=== PATIENT | female | born 1965 | race Caucasian/White ===

== ENCOUNTER 2019-02-24 13:48 | Observation (INO) | payer OTHER ==
--- NOTE | 2019-02-24 14:14 | PDOC ---
Rapid Medical Evaluation Chief Complaint: Chest Pain Time Seen by Provider: 02/24/19 14:04 Medical Evaluation: Allergies Allergy/AdvReac Type Severity Reaction Status Date / Time peanut Allergy Severe ANAPHYLACTI Verified 02/24/19 14:06 C strawberry [[place]] Allergy Severe Hives Verified 02/24/19 14:06 sulfite Allergy Severe HIVES,SWOLLEN Verified 02/24/19 14:06 GLANDS APPLES Allergy Severe Hives Uncoded 02/24/19 14:06 SHRIMP Allergy Severe HIVES Uncoded 02/24/19 14:06 SWOLLEN GLANDS Vital Signs Temp Pulse Resp BP Pulse Ox 82 17 125/7 L 99 02/24/19 14:06 02/24/19 14:06 02/24/19 14:06 02/24/19 14:06 02/24/19 14:13 Patient complaints of: recent travel now with sob and rt sided cp, no calf tenderness Patient on brief exam: vss, lcta, ekg nsr Patient ordered for: labs, ekg Patient to proceed to the ED Discharge Disposition - Diagnosis Chest pain - Referrals - Patient Instructions - Post Discharge Activity
--- NOTE | 2019-02-24 14:53 | PDOC ---
History of Present Illness - History of Present Illness Initial Comments: Dalila Arnett is a 54yo woman with a PMH of HTN, NIDDM, breast CA s/p resection and kidney CA s/p left nephrectomy who presents with mid sternal chest pain that radiated to the left shoulder and neck yesterday. She states that she was standing and cooking dinner when the pain started. The pain initially started as a mid-sternal discomfort, which she did not think anything of at first, but acutely became severe. The pain was sharp, as though she was "shot by an arrow" and intense. It radiated to the left shoulder, where she felt throbbing over the shoulder, as well as the bilateral neck. Ms Arnett reports associated nausea, diaphoresis, and lightheadedness. She was hoping the symptoms would improve without intervention, so she took her regular medications and went to bed yesterday. This morning, her blood pressure was around 150/100, which she says is much higher than normal, and she continued to have chest discomfort. She describes it as tightness and shortness of breath today. She additionally also has jaw discomfort, though this has decreased since yesterday. Ms Arnett additionally endorses bilateral leg pain. She recently returned from a trip to [place] 2 days ago and attributed the pain to walking more than normal. However, she has continued pain, particularly in the left calf. She says that she started feeling somewhat short of breath during the last 1-2 days of her vacation. <Sahara Matthews - Last Filed: 02/24/19 19:15> <Tee Stauffer - Last Filed: 02/24/19 19:36> - General Chief Complaint: Chest Pain Stated Complaint: CHEST PAIN Time Seen by Provider: 02/24/19 14:04 Past History - Past Medical History Anemia: Yes (DUE TO CHEMO) Asthma: Yes (LAST USED ALBUTEROL 2 WEEKS AGO) Cancer: Yes (LT KIDNEY,REMOVED.... LEFT BREAST CA) Cardiac Disorders: Yes (CAD,PT HAS 2 STENTS 2006) CVA: No COPD: No CHF: No Dementia: No Diabetes: Yes (NIDDM) GI Disorders: Yes (GERD) Disorders: No HTN: Yes Hypercholesterolemia: Yes Liver Disease: No Seizures: No Thyroid Disease: No - Surgical History Abdominal Surgery: No Appendectomy: No Cardiac Surgery: Yes (STENT X 2,ONE IN 2004,ANOTHER 2006,REPEAT CATH JUL 2013 NORMAL) Cholecystectomy: No Lung Surgery: No Neurologic Surgery: No Orthopedic Surgery: No - Immunization History Immunization Up to Date: Yes - Suicide/Smoking/Psychosocial Hx Smoking Status: No Smoking History: Never smoked Have you smoked in the past 12 months: No Number of Cigarettes Smoked Daily: 0 Information on smoking cessation initiated: No Hx Alcohol Use: No Drug/Substance Use Hx: No Substance Use Type: None Hx Substance Use Treatment: No <Sahara Matthews - Last Filed: 02/24/19 19:15> <Tee Stauffer - Last Filed: 02/24/19 19:36> - Past Medical History Allergies/Adverse Reactions: Allergies Allergy/AdvReac Type Severity Reaction Status Date / Time peanut Allergy Severe ANAPHYLACTI Verified 02/24/19 14:06 C strawberry [[place]] Allergy Severe Hives Verified 02/24/19 14:06 sulfite Allergy Severe HIVES,SWOLLEN Verified 02/24/19 14:06 GLANDS APPLES Allergy Severe Hives Uncoded 02/24/19 14:06 SHRIMP Allergy Severe HIVES Uncoded 02/24/19 14:06 SWOLLEN GLANDS Home Medications: Ambulatory Orders Amlodipine Besylate [Norvasc -] 5 mg PO HS 10/11/15 Aspirin [ASA -] 81 mg PO DAILY 10/11/15 Atorvastatin Ca [Lipitor -] 10 mg PO HS 10/11/15 Carvedilol [Coreg] 25 mg PO BID 10/11/15 Exemestane [Aromasin] 25 mg PO DAILY 10/11/15 Glipizide Xl [Glucotrol Xl -] 5 mg PO DAILY 10/11/15 Losartan Potassium 100 mg PO DAILY 10/11/15 Review of Systems - Review of Systems Comments:: General: No fevers, no chills, no weight or appetite change, no malaise HEENT: No changes in vision, no changes in hearing, no congestion, no sore throat CV: + chest pain, no palpitations, + LE edema (new recently) Pulm: + SOB, no cough, no wheezing GI: + nausea, no vomiting, no change in bowel habits, no melena : No frequency, no urgency, no dysuria Musc: No back pain, no joint swelling, no recent injury Skin: No rash, no lesions, no erythema Endo: No excessive thirst, no heat/cold intolerance Heme: No unusual bruising or bleeding, no swollen glands Neuro: No syncope, no numbness/tingling, no focal weakness Vasc: No claudication Psych: No recent change in mood, no SI or HI <Sahara Matthews - Last Filed: 02/24/19 19:15> *Physical Exam - Vital Signs Last Vital Signs Temp Pulse Resp BP Pulse Ox 97.4 F L 82 17 125/72 99 02/24/19 14:06 02/24/19 14:06 02/24/19 14:06 02/24/19 14:06 02/24/19 14:06 - Physical Exam Comments: General: Comfortable, no acute distress HEENT: PERRL, EOMI, MMM, voice normal, normal neck ROM, no LAD Cards: RRR, no murmur appreciated Pulm: Comfortable on room air, clear to auscultation bilaterally Abd: Soft, nontender, nondistended : No CVA tenderness Ext: Atraumatic. Left arm edema (2/2 lymph node removal). Mild non-pitting LE edema. Calf tenderness, L>R. Slight pain w/ passive foot flexion. ROM intact. Strength 5/5 and equal bilaterally Vasc: Extremities WWP Skin: Normal color, no rashes or lesions Neuro: A&Ox3, CN grossly intact, normal speech, motor/sensory grossly intact and symmetric Psych: Mood appropriate to situation <Sahara Matthews - Last Filed: 02/24/19 19:15> - Vital Signs Last Vital Signs Temp Pulse Resp BP Pulse Ox 98.0 F 75 17 136/75 97 02/24/19 14:06 02/24/19 14:06 02/24/19 14:06 02/24/19 14:06 02/24/19 14:06 <Tee Stauffer - Last Filed: 02/24/19 19:36> Heart Score/ECG Review - History History: Highly suspicious - Electrocardiogram EKG: Normal - Age Age: 45-65 - Risk Factors Risk Factors Heart Score: Yes Hx Hypercholesterolemia, Yes Hx Hypertension, Yes Hx Diabetes Based on the list above the patient has:: >/=3 risk factors or Hx atherosclerotic disease - Troponin Troponin: </= normal limit - Score Heart Score - Total: 5 <ByronSahara - Last Filed: 02/24/19 19:15> ED Treatment Course - LABORATORY CBC & Chemistry Diagram: 02/24/19 14:28 02/24/19 14:28 <ByronSahara - Last Filed: 02/24/19 19:15> - LABORATORY CBC & Chemistry Diagram: 02/24/19 14:28 02/24/19 14:28 - ADDITIONAL ORDERS Additional order review: Laboratory Results 02/24/19 02/24/19 14:28 14:28 D-Dimer 559 H Sodium 141 Potassium 4.3 Chloride 106 Carbon Dioxide 30 Anion Gap 5 L BUN 15.6 Creatinine 1.4 H Est GFR (CKD-EPI)AfAm 48.90 Est GFR (CKD-EPI)NonAf 42.19 Random Glucose 163 H Calcium 8.7 Total Bilirubin 0.2 AST 19 ALT 36 Alkaline Phosphatase 88 Creatine Kinase 117 Troponin I < 0.02 Total Protein 7.8 Albumin 3.6 02/24/19 14:28 RBC 4.07 MCV 84.6 MCHC 35.0 RDW 13.7 MPV 9.1 D Neutrophils % 59.0 Lymphocytes % 30.6 Monocytes % 6.0 Eosinophils % 3.2 Basophils % 1.2 - Medications Given in the ED: ED Medications Discontinued Medications Generic Name Dose Route Start Last Admin Trade Name Freq PRN Reason Stop Dose Admin Sodium Chloride 2,000 ml 02/24/19 16:34 02/24/19 16:43 Normal Saline - IV 02/24/19 16:35 2,000 ml ONCE ONE Administration <Tee Stauffer - Last Filed: 02/24/19 19:36> Medical Decision Making - Medical Decision Making 02/24/19 14:51 Dalila Arnett is a 54yo woman with a PMH of HTN, NIDDM, breast CA s/p resection and kidney CA s/p left nephrectomy, asthma who presents with mid sternal chest pain that radiated to the left shoulder and neck yesterday with associated diaphoresis, nausea, and lightheadedness. She endorses continued chest tightness, SOB, and jaw discomfort and also notes L>R calf swelling and tenderness following a recent trip to [place]. - Symptoms concerning for ACS or PE. HEART score 5 - CBC, CMP, trop, d-dimer, EKG ordered in RME - CXR order added - No significant discomfort currently, no meds at this time, will reassess - Bedside US completed by Dr Chakraborty and Dr Blanco. No significant cardiac or pulmonary abnormalities appreciated, grossly normal EF, no effusion, no b- lines, no pulm effusion. 02/24/19 16:35 - Labs reviewed. Notable for elevated creatinine to 1.6. Trop negative - D-dimer elevated to 559 - CXR concerning for possible wedge-shaped defect in R lateral lung base - CTA and LE duplex ordered - 2l NS bolus for elevated Cr 02/24/19 18:16 - CT completed. Reviewed in ED. No thrombus or consolidation appreciated. Radiology report pending. - Needs US 02/24/19 19:00 - CT read, no PE. Updated pt - Continued chest tightness. Will give duoneb and reassess - Microblog sent to hospitalist team for admission. 02/24/19 19:16 - Signed out to Dr Stauffer for the remainder of her ED management. Discussed with Endy Allen and Mylene. Sahara Matthews PGY1 <Sahara Matthews - Last Filed: 02/24/19 19:15> - Medical Decision Making Spoke with hospitalist. Patient has been endorsed for admission to telemetry for chest pain. 02/24/19 19:35 <Tee Stauffer - Last Filed: 02/24/19 19:36> *DC/Admit/Observation/Transfer <Sahara Matthews - Last Filed: 02/24/19 19:15> - Discharge Dispostion Decision to Admit order: Yes <Tee Stauffer - Last Filed: 02/24/19 19:36> Diagnosis at time of Disposition: Chest pain Qualifiers: Chest pain type: unspecified Qualified Code(s): R07.9 - Chest pain, unspecified - Discharge Dispostion Condition at time of disposition: Stable - Referrals Referrals: Court Lakhani MD [Primary Care Provider] - - Patient Instructions - Post Discharge Activity
[2019-02-24 14:59] LABS: BASO % 1.2 % (0-2.0); EOS % 3.2 % (0-4.5); HEMATOCRIT 34.5 % (32.4-45.2); HEMOGLOBIN 12.1 GM/dL (10.7-15.3); LYMPH % 30.6 % (8-40); MCH 29.6 pg (25.7-33.7); MEAN CELL VOLUME 84.6 fl (80-96); MEAN PLT VOLUME 9.1 fl (7.5-11.1); PLATELET COUNT 345 K/MM3 (134-434); RBC 4.07 M/mm3 (3.60-5.2); RDW 13.7 % (11.6-15.6); WHITE BLOOD COUNT 6.2 K/mm3 (4.0-10.0)
[2019-02-24 15:36] LABS: ALBUMIN 3.6 g/dl (3.4-5.0); ALK PHOS 88 U/L (45-117); ANION GAP 5 MMOL/L (8-16); BILIRUBIN,TOTAL 0.2 mg/dL (0.2-1); BLOOD UREA NITROGEN 15.6 mg/dL (7-18); CALCIUM 8.7 mg/dL (8.5-10.1); CHLORIDE 106 mmol/L (98-107); CO2 30 mmol/L (21-32); CREATININE 1.4 mg/dL (0.55-1.3); GLUCOSE,RANDOM 163 mg/dL (74-106); POTASSIUM 4.3 mmol/L (3.5-5.1); SGOT/AST 19 U/L (15-37); SGPT/ALT 36 U/L (13-61); SODIUM 141 mmol/L (136-145); TOT PROT 7.8 g/dl (6.4-8.2)
[2019-02-24] MEDS ORDERED: SODIUM CHLORIDE 0.9% 500 ML INFUS.BAG IV ONE (16:34)
--- NOTE | 2019-02-24 16:55 | PDOC ---
Documentation entered by Stephanie Jaramillo SCRIBE, acting as scribe for Carmen Allen MD. Carmen Allen MD: This documentation has been prepared by the malcolmeClint Aiswarya, SCRIBE, under my direction and personally reviewed by me in its entirety. I confirm that the documentation accurately reflects all work, treatment, procedures, and medical decision making performed by me. Attending Attestation - Resident Resident Name: Sahara Matthews - ED Attending Attestation I have performed the following: I have examined & evaluated the patient, The case was reviewed & discussed with the resident, I agree w/resident's findings & plan, Exceptions are as noted - HPI HPI: 02/24/19 16:04 The patient is a 54 year old female, with a significant PMH of anemia, asthma, left kidney and breast cancer (left kidney removed), diabetes (NIDDM), GERD, HTN , and HLD, who presents to the emergency department with chest pain that began yesterday. The patient states pain is located to the anterior mid sternal chest that radiates to left shoulder and neck. The patient endorses associated symptoms of lightheadedness, diaphoresis and nausea. pt with positive family h/o [place] father in 50's. many other family member with acs. pt has had a stress test over 2 year ago. also c/o left calf pain. has had recent travel [place]. The patient denies chest pain, shortness of breath, and headache. Denies fever, chills, vomiting, diarrhea and constipation. Denies dysuria, frequency, urgency and hematuria. Allergies: sulfite Past surgical history:Yes (STENT X 2,ONE IN 2004,ANOTHER 2006,REPEAT CATH JUL 2013 NORMAL Social history: None reported PCP: Court Lakhani 02/24/19 16:51 - Physicial Exam PE: 02/24/19 16:52 awake alert lungs clear bilat. heart rrr no mrg abd soft nd nt. ext wwp no edema. no calf tenderness. skin warm and dry. nuero alert oriented x 3. - Medical Decision Making 02/24/19 16:52 differential pe, infeciton , acs, ca, plan ct angio, labs focused ED TTE ekg aspirin. focused ED TTE normal contractility, no pericardial effusion no rv strain or dilation. impression normal TTE 02/24/19 16:53 labs with positive d dimer. will obtain ct angio. pt hydrated prior as creatinine 1.4 dopplers ordered bilat lower ext. signed out ot oncoming attenidng. pending test results. will require admission due to risk factors family history Heart Score/ECG Review #1 General ECG Interpretation: Sinus Rhythm, Normal Rate (74), Normal Intervals, No acute ischemic changes
[2019-02-24] MEDS ORDERED: ALBUTEROL SO4 2.5/IPRATROPIUM 0.5 INH SOL 3 ML VIAL.NEB. NEB ONE ×2 (18:59→20:25)
--- NOTE | 2019-02-24 20:40 | HP ---
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 She reported she had elevated blood pressures ranging in the 150's. She reported her last stress test was several years ago. Upon evaluation in the ER she was found to have an elevated D-Dimer of 559. CT angiogram of chest showed no evidence of pulmonary embolism. First troponin was normal. EKG revealed a normal sinus rhythm with no signs of acute ischemia, incomplete right bundle branch block. She is currently chest pain free. She is being admitted to observation for further cardiac evaluation. Recent Travel: yes PAST MEDICAL HISTORY: coronary artery disease with 2 stents in 2007 at [facility] hypertension hyperlipidemia diabetes mellitus bilateral breast mastectomy left nephrectomy for renal carcinoma PAST SURGICAL HISTORY: bilateral breast mastectomy left nephrectomy for renal carcinoma Social History: Smoking:denies Alcohol:denies Drugs: denies Family History: noncontributory Allergies peanut Allergy (Severe, Verified 02/24/19 14:06) ANAPHYLACTIC strawberry [[place]] Allergy (Severe, Verified 02/24/19 14:06) Hives sulfite Allergy (Severe, Verified 02/24/19 14:06) HIVES,SWOLLEN GLANDS APPLES Allergy (Severe, Uncoded 02/24/19 14:06) Hives SHRIMP Allergy (Severe, Uncoded 02/24/19 14:06) HIVES SWOLLEN GLANDS HOME MEDICATIONS: Home Medications Medication Instructions Recorded Amlodipine Besylate [Norvasc -] 5 mg PO HS 10/11/15 Aspirin [ASA -] 81 mg PO DAILY 10/11/15 Atorvastatin Ca [Lipitor -] 10 mg PO HS 10/11/15 Carvedilol [Coreg] 25 mg PO BID 10/11/15 Exemestane [Aromasin] 25 mg PO DAILY 10/11/15 Glipizide Xl [Glucotrol Xl -] 5 mg PO DAILY 10/11/15 Losartan Potassium 100 mg PO DAILY 10/11/15 REVIEW OF SYSTEMS CONSTITUTIONAL: Absent: fever, chills, diaphoresis, generalized weakness, malaise, loss of appetite, weight change HEENT: Absent: rhinorrhea, nasal congestion, throat pain, throat swelling, difficulty swallowing, mouth swelling, ear pain, eye pain, visual changes CARDIOVASCULAR: Absent: chest pain, syncope, palpitations, irregular heart rate, lightheadedness , peripheral edema RESPIRATORY: Absent: cough, shortness of breath, dyspnea with exertion, orthopnea, wheezing, stridor, hemoptysis GASTROINTESTINAL: Absent: abdominal pain, abdominal distension, nausea, vomiting, diarrhea, constipation, melena, hematochezia GENITOURINARY: Absent: dysuria, frequency, urgency, hesitancy, hematuria, flank pain, genital pain MUSCULOSKELETAL: Absent: myalgia, arthralgia, joint swelling, back pain, neck pain SKIN: Absent: rash, itching, pallor HEMATOLOGIC/IMMUNOLOGIC: Absent: easy bleeding, easy bruising, lymphadenopathy, frequent infections ENDOCRINE: Absent: unexplained weight gain, unexplained weight loss, heat intolerance, cold intolerance NEUROLOGIC: Absent: headache, focal weakness or paresthesias, dizziness, unsteady gait, seizure, mental status changes, bladder or bowel incontinence PSYCHIATRIC: Absent: anxiety, depression, suicidal or homicidal ideation, hallucinations. PHYSICAL EXAMINATION Vital Signs - 24 hr 02/24/19 14:06 Temperature 98.0 F Pulse Rate 82 Pulse Rate [ 75 Right Radial] Respiratory 17 Rate Blood Pressure 125/72 Blood Pressure 136/75 [Right Arm] O2 Sat by Pulse 97 Oximetry (%) GENERAL: awake, alert, and fully oriented HEAD: normal EYES: pupils equal round and reactive to light EARS, NOSE, THROAT: ears normal, nares patent, oropharynx clear without exudates NECK: supple LUNGS: breath sounds clear to auscultation bilaterally no wheezes no crackles no accessory muscle use HEART: regular rate and rhythm normal S1 and S2 ABDOMEN: soft, nontender, not distended, normoactive bowel sounds MUSCULOSKELETAL: normal range of motion at all joints UPPER EXTREMITIES: 2+ pulses warm well-perfused no cyanosis LOWER EXTREMITIES: 2+ pulses, warm well-perfused no pitting edema NEUROLOGICAL: normal speech PSYCHIATRIC: cooperative SKIN: warm dry normal turgor no rashes or lesions noted Laboratory Results - last 24 hr 0602/24/19 02/24/19 14:28 14:28 14:28 WBC 6.2 RBC 4.07 Hgb 12.1 Hct 34.5 MCV 84.6 MCH 29.6 MCHC 35.0 RDW 13.7 Plt Count 345 D MPV 9.1 D Absolute Neuts (auto) 3.7 Neutrophils % 59.0 Lymphocytes % 30.6 Monocytes % 6.0 Eosinophils % 3.2 Basophils % 1.2 Nucleated RBC % 0 D-Dimer 559 H Sodium 141 Potassium 4.3 Chloride 106 Carbon Dioxide 30 Anion Gap 5 L BUN 15.6 Creatinine 1.4 H Est GFR (CKD-EPI)AfAm 48.90 Est GFR (CKD-EPI)NonAf 42.19 Random Glucose 163 H Calcium 8.7 Total Bilirubin 0.2 AST 19 ALT 36 Alkaline Phosphatase 88 Creatine Kinase 117 Troponin I < 0.02 Total Protein 7.8 Albumin 3.6 ASSESSMENT/PLAN: 54 year old female with history of coronary artery disease with 2 stents in 2007, hypertension, hyperlipidemia, diabetes mellitus,bilateral breast mastectomy, and left nephrectomy for renal carcinoma who presented with exertional chest pain with radiation to left shoulder associated with diaphoresis which lasted a few minutes. She also reported she had elevated blood pressures ranging in the 150's. She was found to have an elevated D-Dimer of 559. CT angiogram of chest showed excluded pulmonary embolism and aortic aneurysm. #1 Chest Pain Workup- EKG with sinus rhythm with incomplete right bundle branch block, no signs of acute ischemia, troponin normal, CT angiogram of chest with no evidence of PE/ aortic aneurysm or dissection - continue to trend troponins - continue with aspirn, statin, coreg, amlodipine and losartan - Echocardiogram ordered to evaluate LV function and exclude wall motion abnormalities - Cardiology consulted- Dr. Smith #2 Coronary Artery Disease Currently asymptomatic of chest pain - continue with aspirin and statin therapy #3 Hypertension Uncontrolled - continue with coreg, amlodipine and losartan #4 Hyperlipidemia - continue w/ statin (LFT's normal) #5 Diabetes Mellitus Accucheks before meals and at bedtime - continue with glipizide #6 Mild Renal Insufficiency Patient has a history of left nephrectomy. Creatinine 1.4. -Continue to monitor closely FEN diabetic diet DVT lovenox 40 mg once daily Visit type - Emergency Visit Emergency Visit: Yes ED Registration Date: 02/24/19 Care time: The patient presented to the Emergency Department on the above date and was hospitalized for further evaluation of their emergent condition. - New Patient This patient is new to me today: Yes Date on this admission: 02/24/19 - Critical Care Critical Care patient: No
[2019-02-24] MEDS ORDERED: ALBUTEROL SO4 0.042% IH SOL 1.25 MG/3 ML VIAL.NEB NEB PRN (21:02)
[2019-02-24] MEDS ORDERED: ENOXAPARIN NA (PORCINE) 40 MG/0.4 ML DISP.SYRIN SQ ONE (21:39)
[2019-02-24] MEDS ORDERED: amLODIPine BESYLATE 5 MG TABLET (FP) PO SCH (22:00)
[2019-02-24] MEDS ORDERED: ATORVASTATIN CA 10 MG TABLET (FP) PO SCH (22:00)
[2019-02-24] MEDS: CARVEDILOL 25 MG TABLET (FP) PO SCH (22:35)
[2019-02-24] MEDS ORDERED: glipiZIDE-XL 5 MG TAB.ER.24 PO SCH ×2 (23:15)
[2019-02-24 23:26] VITALS: BMI 33.7
[2019-02-25] MEDS: INSULIN SLIDING SCALE (NOVOLOG) 1 VIAL SQ SCH ×2 (06:05→11:57)
[2019-02-25 06:54] VITALS: TEMP 97.8
[2019-02-25 07:39] LABS: BLOOD UREA NITROGEN 12.5 mg/dL (7-18); CALCIUM 8.6 mg/dL (8.5-10.1); CREATININE 0.9 mg/dL (0.55-1.3); MAGNESIUM 1.9 mg/dL (1.8-2.4); POTASSIUM 4.6 mmol/L (3.5-5.1)
[2019-02-25 07:53] LABS: HEMATOCRIT 33.5 % (32.4-45.2); HEMOGLOBIN 11.8 GM/dL (10.7-15.3); MCHC 35.1 g/dl (32.0-36.0); MEAN CELL VOLUME 85.3 fl (80-96); MEAN PLT VOLUME 9.9 fl (7.5-11.1); PLATELET COUNT 308 K/MM3 (134-434); RBC 3.93 M/mm3 (3.60-5.2); RDW 13.7 % (11.6-15.6); WHITE BLOOD COUNT 5.3 K/mm3 (4.0-10.0)
[2019-02-25] MEDS: CARVEDILOL 25 MG TABLET (FP) PO SCH (09:35)
[2019-02-25] MEDS ORDERED: ASPIRIN 81 MG CHEWABLE TABLETS PO SCH (10:00)
[2019-02-25] MEDS ORDERED: LOSARTAN POTASSIUM 100 MG TABLET PO SCH (10:00)
[2019-02-25] MEDS ORDERED: glipiZIDE-XL 5 MG TAB.ER.24 PO SCH (10:00)
[2019-02-25] MEDS ORDERED: EXEMESTANE 25 MG TABLET PO SCH (10:00)
[2019-02-25 10:45] VITALS: BP 125/78; PULSE 63
--- NOTE | 2019-02-25 12:00 | CON.CARD ---
Consult Consult Specialty:: Cardiology Referred by:: Medicine Reason for Consultation:: chest pain - History of Present Illness Chief Complaint: chest pain History of Present Illness: 54F h/o CAD s/p stents x2 in 2007 at [facility] [place], HTN, HLD, DM, choco breast mastectomy, L nephrectomy p/w chest pain. Started on , felt a sharp pain in center of chest radiating to L shoulder and back lasting for a few minutes then felt less severe. Associated with sweating, nausea. Had been intermittent till yesterday so came to ER. Patient of Dr. Smith, has not had cardiac testing for a couple of years. Recently traveled to [place], walked a lot without exertional symptoms. D dimer was elevated, CTA chest no PE, venous dopplers no DVT. currently no chest pain, palps, dyspnea. = - Past Medical History Cardio/Vascular: Yes: CAD, HTN, Hyperlipdemia. No: AFIB Pulmonary: Yes: Asthma ...: No Endocrine: Yes: Diabetes Mellitus - Past Surgical History Past Surgical History: Yes: Mastectomy - Alcohol/Substance Use Hx Alcohol Use: Yes (SOCIALY) - Smoking History Smoking history: Never smoked Have you smoked in the past 12 months: No Aproximately how many cigarettes per day: 0 - Social History ADL: Independent History of Recent Travel: No Home Medications - Allergies Allergies/Adverse Reactions: Allergies Allergy/AdvReac Type Severity Reaction Status Date / Time peanut Allergy Severe ANAPHYLACTI Verified 02/24/19 14:06 C strawberry [[place]] Allergy Severe Hives Verified 02/24/19 14:06 sulfite Allergy Severe HIVES,SWOLLEN Verified 02/24/19 14:06 GLANDS APPLES Allergy Severe Hives Uncoded 02/24/19 14:06 SHRIMP Allergy Severe HIVES Uncoded 02/24/19 14:06 SWOLLEN GLANDS - Home Medications Home Medications: Ambulatory Orders Amlodipine Besylate [Norvasc -] 10 mg PO HS 10/11/15 Aspirin [ASA -] 81 mg PO DAILY 10/11/15 Glipizide Xl [Glucotrol Xl -] 10 mg PO HS 10/11/15 Losartan Potassium 100 mg PO DAILY 10/11/15 Amlodipine Besylate 10 mg PO HS 02/24/19 Carvedilol Phosphate [Coreg Cr -] 20 mg PO BID 02/24/19 Family Disease History - Family Disease History Family Disease History: Heart Disease: Father ( of [place] at 54yrs) Review of Systems - Review of Systems Constitutional: reports: No Symptoms Eyes: reports: No Symptoms HENT: reports: No Symptoms Neck: reports: No Symptoms Cardiovascular: reports: No Symptoms Respiratory: reports: No Symptoms Gastrointestinal: reports: No Symptoms Genitourinary: reports: No Symptoms Musculoskeletal: reports: No Symptoms Integumentary: reports: No Symptoms Neurological: reports: No Symptoms Endocrine: reports: No Symptoms Hematology/Lymphatic: reports: No Symptoms Psychiatric: reports: No Symptoms Vital Signs: Vital Signs Temperature 97.8 F 02/25/19 05:00 Pulse Rate 63 02/25/19 09:00 Respiratory Rate 18 02/25/19 09:00 Blood Pressure 125/78 02/25/19 09:00 O2 Sat by Pulse Oximetry (%) 99 02/25/19 05:00 Constitutional: Yes: Well Nourished, No Distress, Calm Eyes: Yes: Conjunctiva Clear, EOM Intact HENT: Yes: Atraumatic, Normocephalic Neck: Yes: Supple, Trachea Midline Respiratory: Yes: Regular, CTA Bilaterally Gastrointestinal: Yes: Normal Bowel Sounds, Soft Cardiovascular: Yes: Regular Rate and Rhythm JVD: No Carotid Bruit: No PMI: Non-Displaced Heart Sounds: Yes: S1, S2 Murmur: No: Systolic Murmur Musculoskeletal: No: Back Pain Extremities: No: Cold Edema: No Peripheral Pulses WNL: Yes Peripheral Pulses: 2+ Left Doralis Pedis, 2+ Right Dorsalis Pedis Integumentary: No: Jaundice Neurological: Yes: Alert, Oriented Psychiatric: No: Agitated - Other Data Labs, Other Data: CBC, BMP 02/25/19 05:40 02/25/19 05:40 Troponin, BNP 02/24/19 02/24/19 14:28 20:25 Troponin I < 0.02 < 0.02 Troponin, BNP 02/24/19 02/24/19 14:28 20:25 Troponin I < 0.02 < 0.02 Assessment/Plan EKG: sinus, IRBBB, no ischemic changes Tele: sinus CXR: no acute pathology CTA: no PE venous dopplers: no DVT Chest pain - trops neg x 2, no ischemic changes on EKG - CTA chest no PE, no DVT on dopplers - benign findings on tele - close outpatient follow up for echocardiogram, stress test, does not want to stay for testing - stable for dc from cardiac perspective CAD - cont aspirin, statin HTN - cont home meds DM - manage per primary HLD - cont statin
--- NOTE | 2019-02-25 12:24 | EKG ---
Test Reason : Blood Pressure : / mmHG Vent. Rate : 074 BPM Atrial Rate : 074 BPM P-R Int : 146 ms QRS Dur : 094 ms QT Int : 416 ms P-R-T Axes : 057 -01 047 degrees QTc Int : 461 ms NORMAL SINUS RHYTHM INCOMPLETE RIGHT BUNDLE BRANCH BLOCK BORDERLINE ECG WHEN COMPARED WITH ECG OF 11-OCT-2015 10:01, NO SIGNIFICANT CHANGE WAS FOUND Confirmed by MD RON, MORGAN ([id number]) on 02/25/2019 12:24:16 PM Referred By: Confirmed By:MORGAN VELASQUEZ MD
[2019-02-25] MEDS ORDERED: PT OWN MED DRAWER 7, Y5N ONE (12:54)
[2019-02-25] MEDS ORDERED: LOSARTAN POTASSIUM 50 MG TABLET (FP) PO SCH (14:52)
--- NOTE | 2019-02-25 15:06 | DS ---
Physical Examination Vital Signs: Vital Signs Temperature 97.8 F 02/25/19 05:00 Pulse Rate 63 02/25/19 09:00 Respiratory Rate 18 02/25/19 09:00 Blood Pressure 125/78 02/25/19 09:00 O2 Sat by Pulse Oximetry (%) 99 02/25/19 05:00 Findings/Remarks: pt seen/ examined. feels well chart reviewed mi ruled out cardiology consult noted/ appreciated Constitutional: Yes: No Distress, Calm Eyes: Yes: Conjunctiva Clear Neck: Yes: Supple Cardiovascular: Yes: Regular Rate and Rhythm Respiratory: Yes: CTA Bilaterally Gastrointestinal: Yes: Soft Edema: No Neurological: Yes: Alert Psychiatric: Yes: Alert Labs: CBC, BMP 02/25/19 05:40 02/25/19 05:40 Discharge Summary Reason For Visit: CHEST PAIN Current Active Problems Chest pain (Acute) Hospital Course: pt with extensive Pmhx as documented admitted for cp NM and PE ruled out discussed with pt wants to home will d/c home meds reconcilled f/u in office one week pt to follow with cardiology as advised In agreement Condition: Stable - Instructions Disposition: HOME - Home Medications Comprehensive Discharge Medication List: Ambulatory Orders Amlodipine Besylate [Norvasc -] 10 mg PO HS 10/11/15 Aspirin [ASA -] 81 mg PO DAILY 10/11/15 Glipizide Xl [Glucotrol Xl -] 10 mg PO HS 10/11/15 Losartan Potassium 100 mg PO DAILY 10/11/15 Amlodipine Besylate 10 mg PO HS 02/24/19 Carvedilol Phosphate [Coreg Cr -] 20 mg PO BID 02/24/19 Albuterol Sulfate 0.042% [Ventolin 0.042% (Half-Strength) -] 1 amp NEB Q6H PRN amp 02/25/19 Atorvastatin Ca [Lipitor] 10 mg PO HS tablet 02/25/19 Carvedilol [Coreg -] 25 mg PO BID tablet 02/25/19 Exemestane [Aromasin -] 25 mg PO DAILY tablet 02/25/19 Insulin Sliding Scale [Novolog Vial Sliding Scale -] 1 vial SQ ACHS units 02/25
--- NOTE | 2019-02-27 15:16 | EKG ---
Test Reason : Blood Pressure : / mmHG Vent. Rate : 065 BPM Atrial Rate : 065 BPM P-R Int : 168 ms QRS Dur : 094 ms QT Int : 446 ms P-R-T Axes : 000 003 033 degrees QTc Int : 463 ms NORMAL SINUS RHYTHM CANNOT RULE OUT ANTERIOR INFARCT , AGE UNDETERMINED ABNORMAL ECG WHEN COMPARED WITH ECG OF 24-FEB-2019 13:47, LIKELY NO SIGNIFICANT CHANGES Confirmed by GAYATRI SAENZ, JOHANNA ([id number]) on 02/27/2019 3:16:26 PM Referred By: Confirmed By:JOHANNA MENDIETA MD
== END 2019-02-25 15:45 | disposition home or self-care (01) ==
LOC: JER 13:48 → JERBED 19:34 → INTOOBSV 19:34 → J4W 21:48
PROVIDERS: ADMIT Internal Medicine; ATTEND Internal Medicine
PROC: 3E0337Z Introduction of Electrolytic and Water Balance Substance into Peripheral Vein, Percutaneous Approach (ICD-10-PCS; principal; 2019-02-24)
PROC: 3E013GC Introduction of Other Therapeutic Substance into Subcutaneous Tissue, Percutaneous Approach (ICD-10-PCS; 2019-02-24)
PROC: 3E0F7GC Introduction of Other Therapeutic Substance into Respiratory Tract, Via Natural or Artificial Opening (ICD-10-PCS; 2019-02-24)
DX: R07.9 Chest pain, unspecified (principal); I10 Essential (primary) hypertension; E78.5 Hyperlipidemia, unspecified; E11.9 Type 2 diabetes mellitus without complications; J45.909 Unspecified asthma, uncomplicated; I25.10 Atherosclerotic heart disease of native coronary artery without angina pectoris; K21.9 Gastro-esophageal reflux disease without esophagitis; N28.9 Disorder of kidney and ureter, unspecified; Z85.3 Personal history of malignant neoplasm of breast; Z85.528 Personal history of other malignant neoplasm of kidney; Z90.13 Acquired absence of bilateral breasts and nipples; Z79.82 Long term (current) use of aspirin; Z79.84 Long term (current) use of oral hypoglycemic drugs; Z91.010 Allergy to peanuts; Z91.013 Allergy to seafood; Z95.5 Presence of coronary angioplasty implant and graft; Z92.21 Personal history of antineoplastic chemotherapy; Z90.5 Acquired absence of kidney; Z88.2 Allergy status to sulfonamides
CPT/HCPCS: 36415; 71046-TC-FY; 71275-TC; 80048; 80053; 82550; 82962; 83735; 84484; 85025; 85027; 85379; 93005; 93010; 93970-TC; 94640; 96372; 99285-25; G0378

== ENCOUNTER 2020-08-12 16:19 | Emergency (ER) | payer OTHER | END 2020-08-12 16:48 | disposition home or self-care (01) | LOC: JVIRT 16:19 | DX: U07.1 COVID-19 (principal) | CPT/HCPCS: 87804; C9803; G2012-GT; Q3014-GT; U0003 ==

== ENCOUNTER 2021-12-04 10:45 | Inpatient (IN) | payer OTHER ==
[2021-12-04 11:11] VITALS: BMI 31.5
[2021-12-04] MEDS ORDERED: ASPIRIN 81 MG CHEWABLE TABLETS PO ONE (12:15)
[2021-12-04] MEDS ORDERED: ASPIRIN 325 MG TABLET ONE (12:22)
[2021-12-04] MEDS ORDERED: ASPIRIN 81 MG CHEWABLE TABLETS ONE (12:25)
[2021-12-04 12:47] LABS: BASO % 0.7 % (0-2.0); EOS % 4.9 % (0-4.5); HEMATOCRIT 35.7 % (32.4-45.2); LYMPH % 34.6 % (8-40); MCHC 33.7 g/dl (32.0-36.0); MEAN CELL VOLUME 85.9 fl (80-96); MEAN PLT VOLUME 9.4 fl (7.5-11.1); MONO % 6.6 % (3.8-10.2); NEUT % 53.2 % (42.8-82.8); PLATELET COUNT 286 10^3/uL (134-434); RBC 4.15 M/mm3 (3.60-5.2); RDW 13.9 % (11.6-15.6); WHITE BLOOD COUNT 5.1 K/mm3 (4.0-10.0)
[2021-12-04 12:56] LABS: INR 1.04 (0.83-1.09)
[2021-12-04 12:59] LABS: ACTIVATED PTT 35.7 SECONDS (25.2-36.5)
[2021-12-04 13:37] LABS: ALBUMIN 4.3 g/dl (3.4-5.0); BLOOD UREA NITROGEN 18.1 mg/dL (7-18); CALCIUM 9.3 mg/dL (8.5-10.1)
[2021-12-04 13:40] LABS: CREATININE 0.8 mg/dL (0.55-1.3)
[2021-12-04 13:41] LABS: BILIRUBIN,TOTAL 0.5 mg/dL (0.2-1)
[2021-12-04 13:42] LABS: TOT PROT 8.2 g/dl (6.4-8.2)
[2021-12-04] MEDS ORDERED: NITROGLYCERIN SUBLINGUAL 1/150 0.4 MG TAB SL PRN (16:37)
[2021-12-04 17:09] VITALS: TEMP 98.2
[2021-12-04] MEDS ORDERED: HEPARIN NA (PORCINE) 5,000 UNITS/ML 1ML VIAL IVPUSH PRN ×2 (21:00)
[2021-12-04] MEDS ORDERED: HEPARIN - 25,000 UNIT in SODIUM CHLORIDE 495 ML IV SCH (21:00)
[2021-12-04] MEDS ORDERED: ACETAMINOPHEN 1000 MG/100 ML BAG IVPB ONE (21:35)
[2021-12-04] MEDS ORDERED: ACETAMINOPHEN INJECTION 100 ML IVPB ONE (21:37)
[2021-12-04] MEDS ORDERED: DEXTROSE 5%-NORMAL SALINE 1,000 ML IV SCH (22:45)
[2021-12-04] MEDS ORDERED: CARVEDILOL 6.25 MG TABLET (FP) PO SCH (23:15)
[2021-12-04] MEDS ORDERED: CARVEDILOL 6.25 MG TABLET (FP) ONE (23:44)
[2021-12-05 00:33] VITALS: BP 145/80; PULSE 86
[2021-12-05] MEDS ORDERED: INSULIN SLIDING SCALE (NOVOLOG) 1 VIAL SQ SCH (07:00)
[2021-12-05] MEDS ORDERED: LOSARTAN POTASSIUM 50 MG TABLET PO SCH (10:00)
[2021-12-05] MEDS ORDERED: MONTELUKAST NA 10 MG TABLET PO SCH (10:00)
[2021-12-05] MEDS ORDERED: ROSUVASTATIN CA 20 MG TABLET PO SCH ×2 (10:00→22:00)
[2021-12-05 10:07] LABS: SARS-CoV-2 NAA Not Detected (Not Detected)
== END 2021-12-05 01:40 | disposition short-term general hospital (02) | DRG 303 ==
LOC: JER 10:45 → JERBED 16:20 → OBSVTOIN 22:37
PROVIDERS: ADMIT Internal Medicine; ATTEND Internal Medicine
DX: I25.119 Atherosclerotic heart disease of native coronary artery with unspecified angina pectoris (principal); R07.9 Chest pain, unspecified; I10 Essential (primary) hypertension; E11.9 Type 2 diabetes mellitus without complications; E78.5 Hyperlipidemia, unspecified; Z95.1 Presence of aortocoronary bypass graft; Z90.5 Acquired absence of kidney; I45.10 Unspecified right bundle-branch block; Z98.61 Coronary angioplasty status
CPT/HCPCS: 36415; 71045-TC-FY; 80053; 84484; 85025; 85610; 85730; 93005; 93010; 99285-25; C9803-CS; G0378; J1644; U0003; U0005

== ENCOUNTER 2022-02-24 16:22 | Emergency (ER) | payer OTHER ==
[2022-02-24 17:07] VITALS: BP 137/82; PULSE 93; TEMP 98.6; BMI 31.5
[2022-02-24] MEDS ORDERED: BEBTELOVIMAB (EUA) 175 MG/2 ML VIAL IVPUSH ONE (17:17)
== END 2022-02-24 19:48 | disposition home or self-care (01) ==
LOC: JER 16:22 → JCOVINFU 16:22
DX: U07.1 COVID-19 (principal)
CPT/HCPCS: 71046-TC-FY; 99284-25; M0222; Q0222

== ENCOUNTER 2022-05-03 14:44 | Observation (INO) | payer OTHER ==
[2022-05-03 15:02] VITALS: TEMP 97.9; BMI 31.1
[2022-05-03] MEDS ORDERED: ASPIRIN 81 MG CHEWABLE TABLETS PO ONE (15:38)
[2022-05-03] MEDS ORDERED: ASPIRIN 81 MG CHEWABLE TABLETS ONE (15:40)
[2022-05-03 15:58] LABS: EOS % 3.8 % (0-4.5); HEMOGLOBIN 12.3 GM/dL (10.7-15.3); LYMPH % 31.4 % (8-40); MCH 28.8 pg (25.7-33.7); MCHC 34.3 g/dl (32.0-36.0); MEAN PLT VOLUME 9.4 fl (7.5-11.1); MONO % 6.6 % (3.8-10.2); NEUT % 57.2 % (42.8-82.8); PLATELET COUNT 324 10^3/uL (134-434); RBC 4.29 M/mm3 (3.60-5.2); RDW 15.1 % (11.6-15.6)
[2022-05-03 16:09] LABS: INR 0.99 (0.83-1.09); PROTHROMBIN TIME (PATIENT) 11.4 SEC (9.7-13.0)
[2022-05-03 16:12] LABS: ACTIVATED PTT 29.7 SECONDS (25.2-36.5)
[2022-05-03 16:18] LABS: CHLORIDE 107 mmol/L (98-107); SODIUM 139 mmol/L (136-145)
[2022-05-03 16:20] LABS: ALBUMIN 4.2 g/dl (3.4-5.0); CALCIUM 9.5 mg/dL (8.5-10.1); CO2 23 mmol/L (21-32); GLUCOSE,RANDOM 106 mg/dL (74-106)
[2022-05-03 16:21] LABS: BLOOD UREA NITROGEN 24.3 mg/dL (7-18)
[2022-05-03 16:23] LABS: CREATININE 1.1 mg/dL (0.55-1.3); SGPT/ALT 32 U/L (13-61)
[2022-05-03 16:24] LABS: SGOT/AST 51 U/L (15-37)
[2022-05-03 16:25] LABS: BILIRUBIN,TOTAL 0.4 mg/dL (0.2-1); TOT PROT 8.9 g/dl (6.4-8.2)
[2022-05-03 16:26] LABS: ALK PHOS 72 U/L (45-117)
[2022-05-03 16:27] LABS: ANION GAP 9 MMOL/L (8-16)
[2022-05-03] MEDS ORDERED: ACETAMINOPHEN 1000 MG/100 ML BAG IVPB ONE (16:40)
[2022-05-03] MEDS ORDERED: ACETAMINOPHEN INJECTION 100 ML IVPB ONE (16:42)
[2022-05-03] MEDS ORDERED: ACETAMINOPHEN 325 MG TABLET (FP) PO PRN (20:20)
[2022-05-03] MEDS ORDERED: SODIUM CHLORIDE 1,000 ML IV SCH (20:30)
[2022-05-03] MEDS ORDERED: SODIUM CHLORIDE 1,000 ML IV STA (21:38)
[2022-05-03] MEDS ORDERED: MONTELUKAST NA 10 MG TABLET PO SCH (22:00)
[2022-05-03] MEDS ORDERED: ROSUVASTATIN CA 40 MG TABLET PO SCH (22:00)
[2022-05-03] MEDS ORDERED: LOSARTAN POTASSIUM 50 MG TABLET PO SCH (22:00)
[2022-05-03] MEDS ORDERED: PATIENT'S OWN MEDICATION (NON-FORMULARY) (Losartan Potassium [Losartan Potassium] 100 MG T PO SCH (22:00)
[2022-05-03] MEDS ORDERED: TICAGRELOR 60 MG TABLET PO SCH (22:00)
[2022-05-03] MEDS ORDERED: PATIENT'S OWN MEDICATION (NON-FORMULARY) (Icosapent Ethyl [Vascepa] 1 GM Capsule) PO SCH ×2 (22:00)
[2022-05-03] MEDS ORDERED: INSULIN SLIDING SCALE (NOVOLOG) 1 VIAL SQ SCH (22:00)
[2022-05-03] MEDS ORDERED: LOSARTAN POTASSIUM 50 MG TABLET ONE (22:42)
[2022-05-03] MEDS ORDERED: ROSUVASTATIN CA 20 MG TABLET ONE (22:43)
[2022-05-03] MEDS ORDERED: CARVEDILOL 6.25 MG TABLET (FP) ONE (22:43)
[2022-05-03] MEDS ORDERED: MONTELUKAST NA 10 MG TABLET ONE (22:43)
[2022-05-03] MEDS: CARVEDILOL 6.25 MG TABLET (FP) PO SCH (22:57)
[2022-05-03] MEDS: OMEGA-3 ACID ETHYL ESTERS (FATTY-ACIDS) 1 GM CAPSULE (FP) PO SCH (23:13)
[2022-05-03] MEDS ORDERED: TICAGRELOR 90 MG TABLET PO ONE (23:40)
[2022-05-03] MEDS: TICAGRELOR 90 MG TABLET PO SCH (23:43)
[2022-05-04] MEDS ORDERED: SODIUM CHLORIDE 1,000 ML IV SCH (02:00)
[2022-05-04] MEDS ORDERED: DEXTROSE 50%-WATER 25 GM/50 ML DISP.SYRIN ONE (02:45)
[2022-05-04] MEDS ORDERED: DEXTROSE 50%-WATER - 25 GM/50 ML VIAL IVPUSH ONE (03:00)
[2022-05-04] MEDS ORDERED: INSULIN SLIDING SCALE (NOVOLOG) 1 VIAL SQ SCH ×2 (03:13→03:14)
[2022-05-04] MEDS ORDERED: DEXTROSE 5%-NORMAL SALINE 1,000 ML IV SCH (04:45)
[2022-05-04] MEDS ORDERED: NITROFURANTOIN MACROCRYSTAL 50 MG CAPSULE (FP) PO SCH (06:10)
[2022-05-04] MEDS: INSULIN SLIDING SCALE (NOVOLOG) 1 VIAL SQ SCH ×2 (08:13→11:30)
[2022-05-04 08:47] LABS: BASO % 0.4 % (0-2.0); EOS % 2.3 % (0-4.5); HEMATOCRIT 38.6 % (32.4-45.2); LYMPH % 23.6 % (8-40); MCH 28.3 pg (25.7-33.7); MCHC 33.6 g/dl (32.0-36.0); MEAN CELL VOLUME 84.3 fl (80-96); MEAN PLT VOLUME 9.3 fl (7.5-11.1); MONO % 4.6 % (3.8-10.2); NEUT % 69.1 % (42.8-82.8); PLATELET COUNT 322 10^3/uL (134-434); RBC 4.58 M/mm3 (3.60-5.2); RDW 14.5 % (11.6-15.6); WHITE BLOOD COUNT 8.5 K/mm3 (4.0-10.0)
[2022-05-04 09:11] LABS: BLOOD UREA NITROGEN 16.6 mg/dL (7-18); MAGNESIUM 2.3 mg/dL (1.8-2.4)
[2022-05-04 09:14] LABS: CREATININE 0.9 mg/dL (0.55-1.3)
[2022-05-04] MEDS ORDERED: TICAGRELOR 90 MG TABLET PO ONE (09:15)
[2022-05-04] MEDS ORDERED: NITROFURANTOIN MACROCRYSTAL 50 MG CAPSULE (FP) ONE (09:15)
[2022-05-04] MEDS ORDERED: CARVEDILOL 6.25 MG TABLET (FP) ONE (09:15)
[2022-05-04] MEDS ORDERED: ASPIRIN 81 MG CHEWABLE TABLETS ONE (09:15)
[2022-05-04 09:24] VITALS: RESP 16
[2022-05-04] MEDS: TICAGRELOR 90 MG TABLET PO SCH (09:24)
[2022-05-04] MEDS: CARVEDILOL 6.25 MG TABLET (FP) PO SCH (09:24)
[2022-05-04] MEDS ORDERED: ASPIRIN 81 MG CHEWABLE TABLETS PO SCH (10:00)
[2022-05-04] MEDS ORDERED: ROSUVASTATIN CA 40 MG TABLET PO SCH (10:00)
[2022-05-04] MEDS ORDERED: TAMOXIFEN CITRATE 10 MG TABLET PO SCH (10:00)
[2022-05-04] MEDS: OMEGA-3 ACID ETHYL ESTERS (FATTY-ACIDS) 1 GM CAPSULE (FP) PO SCH (11:30)
[2022-05-04 11:31] VITALS: BP 141/88; PULSE 67
[2022-05-04] MEDS ORDERED: ROSUVASTATIN CA 20 MG TABLET PO SCH (22:00)
== END 2022-05-04 11:30 | disposition home or self-care (01) ==
LOC: JER 14:44 → JERBED 15:11
PROVIDERS: ADMIT Hospitalist; ATTEND Internal Medicine
PROC: 3E033NZ Introduction of Analgesics, Hypnotics, Sedatives into Peripheral Vein, Percutaneous Approach (ICD-10-PCS; principal; 2022-05-03)
PROC: 3E033GC Introduction of Other Therapeutic Substance into Peripheral Vein, Percutaneous Approach (ICD-10-PCS; 2022-05-03)
PROC: 3E0337Z Introduction of Electrolytic and Water Balance Substance into Peripheral Vein, Percutaneous Approach (ICD-10-PCS; 2022-05-03)
PROC: 3E013VG Introduction of Insulin into Subcutaneous Tissue, Percutaneous Approach (ICD-10-PCS; 2022-05-03)
DX: I25.10 Atherosclerotic heart disease of native coronary artery without angina pectoris (principal); I11.9 Hypertensive heart disease without heart failure; Z95.1 Presence of aortocoronary bypass graft; E78.5 Hyperlipidemia, unspecified; E11.9 Type 2 diabetes mellitus without complications; Z90.5 Acquired absence of kidney; R07.9 Chest pain, unspecified; Z85.3 Personal history of malignant neoplasm of breast; N39.0 Urinary tract infection, site not specified
CPT/HCPCS: 36415; 71046-TC-FY; 71275-TC; 80048; 80053; 82962; 83735; 84132; 84484; 85025; 85610; 85730; 93005; 93010; 96361; 96372; 96374; 96375; 99285-25; C9803-CS; G0378; Q9967; U0003; U0005

== ENCOUNTER 2023-08-16 23:13 | Observation (INO) | payer MEDICARE ==
[2023-08-16] MEDS ORDERED: ACETAMINOPHEN 1000 MG/100 ML BAG IVPB ONE (23:52)
[2023-08-17] MEDS ORDERED: ACETAMINOPHEN INJECTION 100 ML IVPB ONE (00:01)
[2023-08-17 00:24] LABS: EOS % 4.4 % (0-4.5); HEMATOCRIT 37.7 % (32.4-45.2); HEMOGLOBIN 12.5 GM/dL (10.7-15.3); LYMPH % 31.8 % (8-40); MCH 28.2 pg (25.7-33.7); MEAN CELL VOLUME 85.3 fl (80-96); MEAN PLT VOLUME 9.3 fl (7.5-11.1); MONO % 7.6 % (3.8-10.2); NEUT % 55.2 % (42.8-82.8); PLATELET COUNT 335 10^3/uL (134-434); RBC 4.42 M/mm3 (3.60-5.2); RDW 14.4 % (11.6-15.6); WHITE BLOOD COUNT 7.7 K/mm3 (4.0-10.0)
[2023-08-17 00:48] LABS: POTASSIUM 4.3 mmol/L (3.5-5.1)
[2023-08-17 00:50] LABS: CALCIUM 9.4 mg/dL (8.5-10.1)
[2023-08-17 00:51] LABS: ALBUMIN 4.1 g/dl (3.4-5.0); BLOOD UREA NITROGEN 14.8 mg/dL (7-18)
[2023-08-17 00:56] LABS: BILIRUBIN,TOTAL 0.3 mg/dL (0.2-1)
[2023-08-17 00:59] LABS: N-TERMINAL BNP 78.2 pg/ml (5-125)
[2023-08-17 04:48] VITALS: RESP 18
[2023-08-17 05:25] VITALS: BMI 29.9
[2023-08-17] MEDS ORDERED: ACETAMINOPHEN 325 MG TABLET (FP) PO ONE (05:41)
[2023-08-17 08:14] LABS: EOS % 5.4 % (0-4.5); HEMATOCRIT 35.8 % (32.4-45.2); LYMPH % 34.2 % (8-40); MCH 28.2 pg (25.7-33.7); MCHC 33.4 g/dl (32.0-36.0); MEAN CELL VOLUME 84.6 fl (80-96); MEAN PLT VOLUME 9.4 fl (7.5-11.1); MONO % 6.7 % (3.8-10.2); NEUT % 52.7 % (42.8-82.8); PLATELET COUNT 338 10^3/uL (134-434); RBC 4.24 M/mm3 (3.60-5.2); RDW 14.4 % (11.6-15.6); WHITE BLOOD COUNT 5.2 K/mm3 (4.0-10.0)
[2023-08-17 08:26] LABS: POTASSIUM 4.1 mmol/L (3.5-5.1)
[2023-08-17 08:28] LABS: BLOOD UREA NITROGEN 13.3 mg/dL (7-18); MAGNESIUM 2.1 mg/dL (1.8-2.4)
[2023-08-17] MEDS: ASPIRIN 81 MG CHEWABLE TABLETS PO SCH (09:54)
[2023-08-17] MEDS: amLODIPine BESYLATE 10 MG TABLET (FP) PO SCH (09:54)
[2023-08-17] MEDS: NEBIVOLOL 10 MG TABLET (FP) PO SCH (09:56)
[2023-08-17] MEDS: TICAGRELOR 60 MG TABLET PO SCH ×2 (09:56→21:41)
[2023-08-17 12:59] LABS: PH,URINE 6.5 (5.0-8.0); URINE APPEARANCE CLEAR; URINE BILIRUBIN NEGATIVE (NEGATIVE); URINE COLOR YELLOW; URINE GLUCOSE (UA) NEGATIVE (NEGATIVE); URINE KETONE NEGATIVE (NEGATIVE); URINE LEUK ESTERASE NEGATIVE (NEGATIVE); URINE NITRITE NEGATIVE (NEGATIVE); URINE PROTEIN NEGATIVE (NEGATIVE); URINE UROBILINOGEN 0.2 mg/dL (0.2-1.0)
[2023-08-17] MEDS: EZETIMIBE 10 MG TABLET (FP) PO SCH (15:34)
[2023-08-17] MEDS: ROSUVASTATIN CA 20 MG TABLET PO SCH (21:41)
[2023-08-17] MEDS: LOSARTAN POTASSIUM 50 MG TABLET PO SCH (21:42)
[2023-08-18] MEDS ORDERED: REGADENOSON 0.4 MG/5 ML PRE-FILLED SYRINGE IVPUSH ONE ×2 (09:15→09:44)
[2023-08-18] MEDS: amLODIPine BESYLATE 10 MG TABLET (FP) PO SCH (11:40)
[2023-08-18] MEDS: EZETIMIBE 10 MG TABLET (FP) PO SCH (11:41)
[2023-08-18] MEDS: ASPIRIN 81 MG CHEWABLE TABLETS PO SCH (11:41)
[2023-08-18] MEDS: NEBIVOLOL 10 MG TABLET (FP) PO SCH (11:41)
[2023-08-18] MEDS: TICAGRELOR 60 MG TABLET PO SCH ×2 (11:42→21:49)
[2023-08-18] MEDS: LOSARTAN POTASSIUM 50 MG TABLET PO SCH (21:48)
[2023-08-18] MEDS: ROSUVASTATIN CA 20 MG TABLET PO SCH (21:48)
[2023-08-19] MEDS: EZETIMIBE 10 MG TABLET (FP) PO SCH (10:31)
[2023-08-19] MEDS: ASPIRIN 81 MG CHEWABLE TABLETS PO SCH (10:31)
[2023-08-19] MEDS: amLODIPine BESYLATE 10 MG TABLET (FP) PO SCH (10:31)
[2023-08-19] MEDS: TICAGRELOR 60 MG TABLET PO SCH ×2 (10:31→21:04)
[2023-08-19] MEDS: NEBIVOLOL 10 MG TABLET (FP) PO SCH (10:32)
[2023-08-19] MEDS ORDERED: ACETAMINOPHEN 1000 MG/100 ML BAG IVPB PRN (16:06)
[2023-08-19] MEDS: LOSARTAN POTASSIUM 50 MG TABLET PO SCH (21:04)
[2023-08-19] MEDS: ROSUVASTATIN CA 20 MG TABLET PO SCH (21:04)
[2023-08-20 09:09] VITALS: BP 111/71; PULSE 80; TEMP 97.3
[2023-08-20] MEDS: amLODIPine BESYLATE 10 MG TABLET (FP) PO SCH (09:49)
[2023-08-20] MEDS: ASPIRIN 81 MG CHEWABLE TABLETS PO SCH (09:49)
[2023-08-20] MEDS: EZETIMIBE 10 MG TABLET (FP) PO SCH (09:49)
[2023-08-20] MEDS: NEBIVOLOL 10 MG TABLET (FP) PO SCH (09:50)
[2023-08-20] MEDS: TICAGRELOR 60 MG TABLET PO SCH (09:50)
[2023-08-20] MEDS ORDERED: ACETAMINOPHEN 500 MG TABLET (FP) PO PRN (10:43)
== END 2023-08-20 15:04 | disposition short-term general hospital (02) ==
LOC: JER 23:13 → JERBED 08-17 02:30 → J4S 08-17 04:59
PROVIDERS: ADMIT Internal Medicine; ATTEND Internal Medicine
PROC: 3E033NZ Introduction of Analgesics, Hypnotics, Sedatives into Peripheral Vein, Percutaneous Approach (ICD-10-PCS; principal; 2023-08-17)
PROC: 3E033GC Introduction of Other Therapeutic Substance into Peripheral Vein, Percutaneous Approach (ICD-10-PCS; 2023-08-17)
DX: R07.9 Chest pain, unspecified (principal); I25.10 Atherosclerotic heart disease of native coronary artery without angina pectoris; E11.9 Type 2 diabetes mellitus without complications; J45.909 Unspecified asthma, uncomplicated; K21.9 Gastro-esophageal reflux disease without esophagitis; I10 Essential (primary) hypertension; E78.5 Hyperlipidemia, unspecified; D64.9 Anemia, unspecified; Z95.5 Presence of coronary angioplasty implant and graft; D64.81 Anemia due to antineoplastic chemotherapy; Z95.1 Presence of aortocoronary bypass graft; Z86.16 Personal history of COVID-19; Z90.10 Acquired absence of unspecified breast and nipple; Z90.5 Acquired absence of kidney; Z91.013 Allergy to seafood
CPT/HCPCS: 36415; 71045-TC-FY; 71250-TC; 78452-TC; 80048; 80053; 80061; 81003; 82962; 83036; 83735; 83880; 84439; 84443; 84484; 85025; 87086; 87635; 93005; 93010; 93017; 93306-TC; 96374; 96375; 99285-25; A9502; G0378; J2785